=== PATIENT | female | born 1980 | race Caucasian/White ===

== ENCOUNTER 2016-08-05 16:29 | Outpatient (CLI) | payer MEDICAID ==
[~2016-08-05] VITALS: Ht 154.9 cm; Wt 82.4 kg
[~2016-08-05 16:29] MED LIST: ACET-2047 PO; NO CURRENT MEDS; PREN1TAB49 PO
[2016-08-05 16:39] VITALS: Ht 154.9 cm; Wt 82.4 kg
[2016-08-05 16:40] VITALS: BP 113/62
--- NOTE | 2016-08-05 17:34 | RADRPT ---
PROCEDURE: US OB biophysical profile. CLINICAL INDICATION: evaluation TECHNIQUE: Multiple sonographic images of the pelvis were obtained. The images were reviewed on a PACS workstation. COMPARISON: No prior studies are available for comparison. FINDINGS: There is a single viable intrauterine gestation. Cardiac activity is present with 136 beats per min fazal. There is a vertex presentation. The placenta is fundal. There is no evidence of placental abruption. There is a low - normal amount of amniotic fluid with an TERRIE = 8.9 cm. Biophysical profile: movement 2/2 tone 2/2. breathing 2/2 TERRIE 2/2 Total 03/03 RPTAT: AA . IMPRESSION: Normal biophysical profile. Low - normal TERRIE of 8.9 cm. Physician Dylan Date Time Electronically viewed and signed by Lucien Rea Physician on 08/05/2016 17:33 /
--- NOTE | 2016-08-08 18:00 | CONS ---
DATE OF ADMISSION: 08/05/2016 DATE OF CONSULTATION: HOSPITAL TRIAGE NOTE HISTORY OF PRESENT ILLNESS: This lady is a 36-year-old 6, para 3, 2 who came to [facility] triage area complaining of low movement all day that day. No complaining of contractions or vaginal discharge or bleeding. Her previous deliveries were vaginal without any complications. On the monitor, she was having just occasional contractions. PHYSICAL EXAMINATION: GENERAL: She is a well-developed, well-nourished lady. EARS, NOSE, AND THROAT: Appear to be normal. NECK: Normal. Thyroid is normal. LUNGS: Clear to auscultation and percussion. BREASTS: Soft, free of masses. ABDOMEN: Soft. The uterus is measured around 28 cm. It appears that the baby is in vertex present ation. No CVA tenderness. EXTREMITIES: Negative for edema or varicosity. On the monitor, her contractions were very infrequent. The ultrasound study was performed. Her NST was reactive with good variability and acceleration. No decels. Biophysical profile was reported 8/8. Her TERRIE was 8.9 cm. Due to lack of contractions, she was instructed to go home and rest and g o back to see her primary care physician in 2 days. She was asked to do a kick count. If notice an y low count/ movement, return to the hospital again. Dictated By: KRIS INIGUEZ/NTS Conf#: [id number] DID#: [id number]
== END 2016-08-05 18:18 | disposition home or self-care (01) ==
LOC: L-D 16:29 → OBT 16:29
PROVIDERS: ATTEND Obstetrics & Gynecology
DX: O36.8130 Decreased fetal movements, third trimester, not applicable or unspecified (principal); O09.523 Supervision of elderly multigravida, third trimester; Z3A.00 Weeks of gestation of pregnancy not specified
CPT/HCPCS: 76818; Z7500; G0463

== ENCOUNTER 2016-08-09 17:26 | Inpatient (IN) | payer MEDICAID ==
[~2016-08-09] VITALS: Ht 154.9 cm; Wt 82.7 kg
[~2016-08-09 17:26] MED LIST changes: -ACET-2047 PO
[2016-08-14 17:50] VITALS: Ht 154.9 cm; Wt 82.7 kg
[2016-08-14 17:51] VITALS: BP 126/71; RESP 15
[2016-08-14] MEDS ORDERED: OXYTOCIN 30 UNITS/LR 500 ML IV SCH ×3 (18:00→19:00)
[2016-08-14] MEDS ORDERED: MISOPROSTOL 200 MCG TAB PR PRN (18:00)
[2016-08-14] MEDS ORDERED: IBUPROFEN 600 MG TAB PO PRN (18:00)
[2016-08-14] MEDS ORDERED: CARBOPROST 250 MCG INJ IM PRN (18:00)
[2016-08-14] MEDS ORDERED: OXYTOCIN 30 UNITS/LR 500 ML IV PRN (18:00)
[2016-08-14] MEDS ORDERED: METHYLERGONOVINE 0.2 MG INJ IM PRN (18:00)
[2016-08-14] MEDS ORDERED: LIDOCAINE 1% (MPF) 30 ML INJ INJ PRN (18:00)
[2016-08-14] MEDS ORDERED: BUTORPHANOL 2 MG INJ IV PRN (18:00)
[2016-08-14] MEDS: LACTATED RINGER'S 1,000 ML IV SCH (18:18)
[2016-08-14 18:45] LABS: BASOPHILS % 0.3 % (0.0-2.0); EOSINOPHILS # 0.1 10^3/ul (0.0-0.5); EOSINOPHILS % 0.7 % (0.0-7.0); HEMOGLOBIN 12.6 g/dl (12.0-16.0); LYMPHOCYTES # 2.3 10^3/ul (0.8-2.9); LYMPHOCYTES % 21.4 % (15.0-51.0); MEAN CORPUSCULAR HGB CONC 33.9 g/dl (32.0-37.0); MEAN CORPUSCULAR VOLUME 88.3 fl (82.0-101.0); MEAN PLATELET VOLUME 7.4 fl (7.4-10.4); MONOCYTE # 0.5 10^3/ul (0.3-0.9); MONOCYTES % 4.6 % (0.0-11.0); NEUTROPHIL # 7.7 10^3/ul (1.6-7.5); PLATELET COUNT 300 10^3/UL (140-440); RED BLOOD COUNT 4.19 10^6/ul (4.20-5.40); RED CELL DISTRIBUTION WIDTH 14.3 % (11.5-14.5); UNCORRECTED WBC 10.6 10^3/ul (4.8-10.8); WHITE BLOOD COUNT 10.6 10^3/ul (4.8-10.8)
[2016-08-14 18:53] LABS: PT RATIO 0.9
[2016-08-14 19:02] LABS: CONDITION 1
[2016-08-14 19:23] LABS: INR 0.87; PROTIME 11.9 Sec (12.2-14.2)
[2016-08-14 19:24] LABS: PARTIAL THROMBOPLASTIN TIME 26.9 Sec (25.0-35.0)
[2016-08-15] MEDS ORDERED: OXYTOCIN 30 UNITS/LR 500 ML IV SCH
[2016-08-15] MEDS: LACTATED RINGER'S 1,000 ML IV SCH ×2 (01:22→10:00)
[2016-08-15] MEDS ORDERED: FENTAnyl 50 MCG/ML VIAL ONE (11:13)
[2016-08-15] MEDS ORDERED: FENTAnyl 2MCG/ML-ROPIV 0.2% 100 ML ONE (11:13)
[2016-08-15] MEDS ORDERED: NALOXONE (0.4 MG/ML) INJ IV PRN (12:30)
[2016-08-15] MEDS ORDERED: FENTAnyl 2MCG/ML-ROPIV 0.2% 100 ML BAG EPI SCH (12:30)
--- NOTE | 2016-08-15 13:51 | DELSUM ---
Delivery Summary A-C Datetime Report Generated by CPN: 08/15/2016 13:50 DELIVERY PERSONNEL Furnace Filler: Travis, Karley MATERNAL INFORMATION Delivery Anesthesia: Epidural Medications in Delivery: oxytocin 30mu in in 599ml of LR Estimated Blood Loss (ml): 200 Placenta Cultured: No Maternal Complications: None LABOR SUMMARY EDC: 08/12/2016 00:00 No. Babies in Womb: 1 Attempted: No Labor Anesthesia: None LABOR INFORMATION Reason for Induction: Postterm Onset of Labor: 08/15/2016 08:44 Complete Dilatation: 08/15/2016 11:41 Oxytocin: Induction Group B Beta Strep: Negative Group B Beta Strep: Negative Steroids Given: None Reason Steroids Not Administered: Not Applicable MEMBRANES Membranes Rupture Method: Artificial Rupture of Membranes: 08/15/2016 08:44 Length of Rupture (hr): 3.33 Amniotic Fluid Color: Bloody Amniotic Fluid Amount: Scant Amniotic Fluid Odor: Normal STAGES OF LABOR Stage 1 hr: 2 Stage 1 min: 57 Stage 2 hr: 0 Stage 2 min: 23 Stage 3 hr: 0 Stage 3 min: 5 Total Time in Labor hr: 3 Total Time in Labor min: 25 VAGINAL DELIVERY Episiotomy: None Laceration Extension: First Degree Laceration Type: Perineal Laceration Repair: Yes Initial Vag Sponge Count: 20 Final Vag Sponge Count: 20 Initial Vag Sharps Count: 1 Final Vag Sharps Count: 2 Sponge Count Correct: Yes; Vaginal Sweep Performed Sharps Count Correct: Yes BABY A INFORMATION Delivery Date/Time: 08/15/2016 12:04 Method of Delivery: Vaginal Method of Delivery: Vaginal Born in Route : No : N/A Forceps: N/A Vacuum Extraction: N/A Shoulder Dystocia : N/A SHOULDER DYSTOCIA BABY A Infant Delivery Date/Time: 08/15/2016 12:04 PRESENTATION/POSITION BABY A Presentation: Cephalic Cephalic Presentation: Vertex Vertex Position: Left Occipital Anterior Breech Presentation: N/A PLACENTA INFORMATION BABY A Placenta Delivery Time : 08/15/2016 12:09 Placenta Method of Delivery: Spontaneous Placenta Method of Delivery: Spontaneous Placenta Status: Delivered SCORES BABY A Heart Rate 1 min: >100 bpm Resp Effort 1 min: Good Cry Reflex Irritability 1 min: Cough/Sneeze/Pulls Away Muscle Tone 1 min: Active Motion Color 1 min: Body Merriam, Extremit Blue Resuscitation Effort 1 min: Tactile Stimulation SCORE 1 MIN: 9 Heart Rate 5 min: >100 bpm Resp Effort 5 min: Good Cry Reflex Irritability 5 min: Cough/Sneeze/Pulls Away Muscle Tone 5 min: Active Motion Color 5 min: Body Merriam, Extremit Blue Resuscitation Effort 5 min: Tactile Stimulation SCORE 5 MIN: 9 INFORMATION BABY A Gestational Age at Delivery: 40.4 Gestational Status: Full Term- 39- 40.6 Weeks Infant Outcome : Liveborn Condition : Stable Infant Sex: Female Infant Sex: Female IDENTIFICATION/MEDS BABY A ID Band Number: [id number] ID Band Location: Right Leg; Left Arm Sensor Applied: Yes Sensor Number: [id number] Sensor Location : Cord Clamp Vitamin K Given : Aquamephyton 1 mg IM; Left Thigh Erythromycin Given: Given Both Eyes WEIGHT/LENGTH BABY A Infant Birthweight (gm): 3450 Infant Weight (lb): 7 Weight (oz): 10 Infant Length (in): 21.00 Length (cm): 53.34 CORD INFORMATION BABY A No. Cord Vessels: 3 Nuchal Cord : N/A Cord Blood Taken: Yes Infant Suction: Mouth; Nose ASSESSMENT BABY A Complications: None Physical Findings at Delivery: Within Normal Limits Infant Respirations: Appears Normal Student Development Coordinator/ALS Called : No Infant Care By: Davida Transferred To: Remains with Mother
[2016-08-15] MEDS ORDERED: BENZOCAINE 20% 56 ML SPRAY TOP PRN (14:00)
[2016-08-15] MEDS ORDERED: ACETAMINOPHEN 325 MG TAB PO PRN (14:00)
[2016-08-15] MEDS ORDERED: LANOLIN 7 GM TUBE TOP PRN (14:00)
[2016-08-15] MEDS ORDERED: OXYCODONE/ASPIRIN (4.88/325) TAB PO PRN ×2 (14:00)
[2016-08-15] MEDS ORDERED: WITCH HAZEL/GLYCERIN PAD PR PRN (14:00)
[2016-08-15] MEDS ORDERED: DIBUCAINE 1% 30 GM OINT PR PRN (14:00)
[2016-08-15] MEDS ORDERED: ONDANSETRON 4 MG INJ IV PRN (14:00)
[2016-08-15] MEDS ORDERED: ACETAMINOPHEN/CODEINE #3 TAB PO PRN ×2 (14:00)
--- NOTE | 2016-08-15 14:11 | HP ---
Date/Time of Note Date/Time of Note DATE: 08/15/16 TIME: 13:53 OB - History Hx of Present Free Text/Dictation 36 years old female admitted to [facility] at 40 weeks and 3 days of in early labor ,admission pelvic examination: Cervical dilatation 2 cm 80% effaced, vertex at -2 station with intact membranes , mild contraction every 6-7 minutes, with category 1 heart tracing'. This patient has been under the care of [facility] and her was not complicated with gestational diabetes -induced hypertension or any other medical or surgical conditions Medication allergies; denies allergy to any known medication Social habit ;denies any smoking or drinking Family history unremarkable Review of system within normal Estimated Due Date: Aug 12, 2016 : 6 Para: 3 Spontaneous : 0 Therapeutic : 2 Care: Limited Care Ultrasounds: Normal mid trimester US Obstetrical Complications: None Medical Complications: None Past Family/Social History * Past Medical, Surgical, Family and Obstetric Histories reviewed from chart. Rubella: immune RPR/VDRL: Negative GBS Status: Negative HBsAG: Negative OB Admission Exam Vital Signs Vital Signs Vital Signs Date Time Temp Pulse Resp B/P Pulse Ox O2 Delivery O2 Flow Rate FiO2 08/14/16 17:51 98.4 15 126/71 Physical Exam HEENT: WNL Heart: Rhythm Normal Abdomen: WNL Extremities: Normal Reflexes: Normal Cervical Dilatation: 2cm Effacement: Other (80%) Station: -1 Membranes: Intact Accelerations: Accelerations Present Decelerations: No Decelerations Varibility: Minimum Contractions on Admission: 6-10 Minutes Apart Intensity: Mild Last 72 hours Lab Results CBC & BMP 08/14/16 18:15 MAY NICE MD Aug 15, 2016 14:03
--- NOTE | 2016-08-15 14:17 | LDN ---
Date/Time of Note Date/Time of Note DATE: 08/15/16 TIME: 14:11 Delivery Summary Normal spontaneous vaginal delivery of a baby girl from NICOLAS position shoulders delivered with no difficulty followed with the rest of the baby's body nasal oropharyngeal suction was performed cord was clamped after stopped pulsing baby handed to the team for immediate attention patient received 30 units of Pitocin through the IV infusion. Placenta; spontaneous exposure inspected complete sent to the pathology Small first-degree perineal laceration repaired with 3-0 chromic catgut estimated blood loss 250 cc Placenta Delivered: Spontaneously Meconium: none Perineum intact?: No Anesthesia type: Epidural Sponge & Needle done & correct: Yes All needle counts correct: Yes Any foreign bodies felt in the: No Problems: Infant Delivery Information Sex Infant Sex: female Apgars 1 Minute: 9 5 Minute: 9 Suctioning Nose & mouth suctioned at rodney: Yes Delee suction performed: No Umbilical Cord Umbilical cord with: 3 Vessels Cord presentations: nuchal cord Cord Blood was obtained: Yes MAY NICE MD Aug 15, 2016 14:17
[2016-08-15 14:49] VITALS: BP 110/55; PULSE 86; RESP 20
[2016-08-15] MEDS: OXYTOCIN 30 UNITS/LR 500 ML IV SCH ×2 (16:15→19:20)
[2016-08-15 16:24] VITALS: BP 115/63; PULSE 89; RESP 20
[2016-08-15] MEDS: IBUPROFEN 600 MG TAB PO SCH ×2 (18:47→23:50)
[2016-08-15 19:20] VITALS: BP 108/68; PULSE 69; RESP 20
[2016-08-15] MEDS: SENNA/DOCUSATE NA (8.6MG/50MG) TAB PO SCH (21:21)
[2016-08-16 04:10] VITALS: BP 101/63; PULSE 74; RESP 19
[2016-08-16] MEDS: IBUPROFEN 600 MG TAB PO SCH ×4 (05:51→23:22)
[2016-08-16 07:16] LABS: BASOPHILS % 0.3 % (0.0-2.0); EOSINOPHILS # 0.1 10^3/ul (0.0-0.5); EOSINOPHILS % 0.5 % (0.0-7.0); HEMATOCRIT 33.1 % (37.0-47.0); HEMOGLOBIN 11.2 g/dl (12.0-16.0); LYMPHOCYTES # 3.2 10^3/ul (0.8-2.9); MEAN CORPUSCULAR VOLUME 88.5 fl (82.0-101.0); MEAN PLATELET VOLUME 7.6 fl (7.4-10.4); MONOCYTE # 0.6 10^3/ul (0.3-0.9); MONOCYTES % 4.1 % (0.0-11.0); NEUTROPHIL # 10.8 10^3/ul (1.6-7.5); NEUTROPHILS % 73.1 % (39.0-77.0); PLATELET COUNT 251 10^3/UL (140-440); RED BLOOD COUNT 3.74 10^6/ul (4.20-5.40); RED CELL DISTRIBUTION WIDTH 15.1 % (11.5-14.5); UNCORRECTED WBC 14.7 10^3/ul (4.8-10.8); WHITE BLOOD COUNT 14.7 10^3/ul (4.8-10.8)
[2016-08-16 07:39] LABS: CONDITION 1; LH ANALYZER COMMENTS 1
[2016-08-16 08:55] VITALS: BP 101/68; PULSE 64; RESP 18
[2016-08-16] MEDS: SENNA/DOCUSATE NA (8.6MG/50MG) TAB PO SCH ×2 (09:24→21:03)
--- NOTE | 2016-08-16 13:29 | PN ---
Date/Time of Note Date/Time of Note DATE: 08/16/16 TIME: 13:28 OB Subjective Subjective Subjective day 1 Afebrile vital sign stable, abdomen soft uterus firm lochia normal extremity normal. Laboratory Tests Test 08/16/16 06:20 Basophils # 0.010^3/ul Basophils % 0.3% Blood Morphology Comment Eosinophils # 0.110^3/ul Eosinophils % 0.5% Hematocrit 33.1% Hemoglobin 11.2g/dl Lymphocytes # 3.210^3/ul Lymphocytes % 22.0% Mean Corpuscular Hemoglobin 30.0pg Mean Corpuscular Hemoglobin Concent 34.0g/dl Mean Corpuscular Volume 88.5fl Mean Platelet Volume 7.6fl Monocytes # 0.610^3/ul Monocytes % 4.1% Neutrophils # 10.810^3/ul Neutrophils % 73.1% Nucleated Red Blood Cells # 0.010^3/ul Nucleated Red Blood Cells % 0.0/100WBC Platelet Count 53626^3/UL Red Blood Count 3.7410^6/ul Red Cell Distribution Width 15.1% White Blood Count 14.710^3/ul Current Medications Medications (Trade) Dose Ordered Sig/Cydney Route PRN Reason Start Time Stop Time Status Last Admin Dose Admin Lactated Ringer's (Lr) 1,000 ml @ 125 mls/hr Q8H IV 08/14/16 17:54 08/15/16 14:01 DC 08/15/16 10:00 Butorphanol Tartrate (Stadol) 2 mg Q2H PRN IV PAIN 08/14/16 18:00 08/15/16 14:01 DC Lidocaine 30 ml 30 ml ONCE PRN INJ EPISIOTOMY/TEARING 08/14/16 18:00 08/15/16 14:01 DC Oxytocin/Lactated Ringer's 500 ml @ 125 mls/hr ONCE -MAY REPEAT X1 IV 08/14/16 18:00 08/15/16 14:01 DC Oxytocin/Lactated Ringer's 500 ml @ 125 mls/hr ONCE IV 08/14/16 18:00 08/15/16 14:01 DC 08/15/16 12:24 Ibuprofen 600 mg 600 mg ONCE PRN PO Mild Pain (Pain Score 1-3) 08/14/16 18:00 08/15/16 14:01 DC Oxytocin/Lactated Ringer's 500 ml @ 0 mls/hr ONCE PRN IV For Hemorrhage Management 08/14/16 18:00 08/15/16 14:01 DC Methylergonovine Maleate (Methergine) 0.2 mg ONCE PRN IM VAGINAL BLEEDING 08/14/16 18:00 08/15/16 14:01 DC Carboprost Tromethamine (Hemabate) 250 mcg ONCE PRN IM VAGINAL BLEEDING 08/14/16 18:00 08/15/16 14:01 DC Misoprostol 1000 mcg 1,000 mcg ONCE PRN SD VAGINAL BLEEDING 08/14/16 18:00 08/15/16 14:01 DC Oxytocin/Lactated Ringer's 500 ml @ 0 mls/hr Q0M IV 08/14/16 19:00 08/14/16 19:00 DC Oxytocin/Lactated Ringer's 500 ml @ 0 mls/hr Q0M IV 08/15/16 00:00 08/15/16 14:01 DC 08/15/16 00:05 Fentanyl/ Ropivacaine 100 ml @ ud STK-MED ONCE .ROUTE 08/15/16 11:13 08/15/16 11:14 DC Fentanyl (Sublimaze) 100 mcg STK-MED ONCE .ROUTE 08/15/16 11:13 08/15/16 11:14 DC Naloxone HCl (Narcan) 0.1 mg Q2M PRN IV FOR RESP RATE 8 OR LESS 08/15/16 12:30 08/15/16 14:01 DC Fentanyl/ Ropivacaine 100 ml 100 ml EPIDURAL INFUSION EPI 08/15/16 12:30 08/15/16 14:01 DC Oxytocin/Lactated Ringer's 500 ml @ 125 mls/hr Q4H IV 08/15/16 13:58 08/15/16 21:57 DC 08/15/16 16:15 Ibuprofen (Motrin) 600 mg Q6 PO 08/15/16 18:00 08/16/16 11:57 Acetaminophen (Tylenol Tab) 650 mg Q4H PRN PO PAIN LEVEL 1-5 08/15/16 14:00 08/15/16 15:21 Acetaminophen/ Codeine Phosphate (Tylenol No.3) 1 tab Q4H PRN PO PAIN LEVEL 1-5 08/15/16 14:00 Acetaminophen/ Codeine Phosphate (Tylenol No.3) 2 tab Q4H PRN PO PAIN LEVEL 6-10 08/15/16 14:00 Oxycodone/Aspirin (Percodan) 1 tab Q3H PRN PO PAIN LEVEL 1-5 08/15/16 14:00 Oxycodone/Aspirin (Percodan) 2 tab Q3H PRN PO PAIN LEVEL 6-10 08/15/16 14:00 Ondansetron HCl (Zofran Inj) 4 mg Q6H PRN IV NAUSEA AND/OR VOMITING 08/15/16 14:00 Senna/Docusate Sodium (Senokot-S) 1 tab BID PO 08/15/16 21:00 08/16/16 09:24 Witch Niharika/ Glycerin (Tucks Pads) 1 pad BEDSIDE MEDICATION PRN SD HEMORRHOID/EPISIOTMY PAIN 08/15/16 14:00 Benzocaine (Dermoplast [place]) 1 spray BEDSIDE MEDICATION PRN TOP HEMORRHOID/EPISIOTMY PAIN 08/15/16 14:00 08/15/16 15:21 Dibucaine (Nupercainal) 1 applic BEDSIDE MEDICATION PRN SD HEMORRHOID/EPISIOTMY PAIN 08/15/16 14:00 Lanolin (Kjq-S-Owyqwm) 1 applic BEDSIDE MEDICATION PRN TOP BEDSIDE FOR SANDY TO NIPPLES 08/15/16 14:00 08/15/16 23:50 Measles/Mumps/ Rubella Vaccine Live (Mmr Ii Vaccine) 0.5 ml ONCE ONCE SC* 08/17/16 09:00 08/17/16 09:01 Influenza Virus Vaccine (Fluzone) 0.5 ml ONCE ONCE IM* 08/16/16 18:00 08/16/16 18:01 MAY NICE MD Aug 16, 2016 13:29
[2016-08-16 16:45] VITALS: BP 102/65; PULSE 61; RESP 18
[2016-08-16] MEDS ORDERED: INFLUENZA VIRUS VACCINE 0.5 ML SYG IM* ONE (18:00)
[2016-08-16 19:30] VITALS: BP 106/57; PULSE 73; RESP 19
[2016-08-17 03:40] VITALS: BP 102/58; PULSE 61; RESP 19
[2016-08-17] MEDS: IBUPROFEN 600 MG TAB PO SCH ×2 (05:53→12:17)
[2016-08-17 08:50] VITALS: BP 111/66; PULSE 65; RESP 18
[2016-08-17] MEDS: SENNA/DOCUSATE NA (8.6MG/50MG) TAB PO SCH (09:00)
[2016-08-17] MEDS ORDERED: MEASLES,MUMPS,RUBELLA VACCINE INJ SC* ONE (09:00)
--- NOTE | 2016-08-17 13:25 | PD.PPDC ---
ROAD ROLLER OPERATOR Discharge Instruction Condition Patient Condition: Good Diet Diet: Resume Regular Diet Activity/Restrictions Activity: Normal Activity May Shower Restrictions: No Exercising No Lifting No Driving No Sexual Activity Nothing in the Vagina No [place] No Tampons, douche Wound/Drain Care Instructions Wound/Drain Care Instructions: Wash with soap and water Keep clean and dry Follow-up Follow-up with Physician: 2, Week/Weeks Return to clinic for CENTRIFUGAL SPINNER Instructions: Fever greater than 101 Worsening abdominal pain More than 2 pads per hour MAY NICE MD Aug 17, 2016 13:25
--- NOTE | 2016-08-17 13:28 | DS ---
Date/Time of Note Date/Time of Note DATE: 08/17/16 TIME: 13:26 Obstetrical Discharge Record Final Diagnosis Final Diagnosis: Term delivered Vaginal Delivery Obstetrical Delivery: Spontaneous Condition on Discharge Physical Assessment Last Vitals: Vital sign stable, abdomen soft uterus firm lochia normal extremity normal patient discharged home with follow-up instructions recommended to make appointment in 2 weeks to be seen at the clinic for check Breast: Soft, non-tender, Filling Fundus: Firm Calf Tenderness: No Patient Condition: Good MAY NICE MD Aug 17, 2016 13:28
== END 2016-08-17 18:16 | disposition home or self-care (01) | DRG 775 ==
LOC: EDSTATUS 17:26 → L-D 08-14 17:27 → PP1 08-15 14:05
PROVIDERS: ADMIT Obstetrics & Gynecology; ATTEND Obstetrics & Gynecology
PROC: 10E0XZZ Delivery of Products of Conception, External Approach (ICD-10-PCS; principal; 2016-08-15)
PROC: 0HQ9XZZ Repair Perineum Skin, External Approach (ICD-10-PCS; 2016-08-15)
PROC: 3E00X4Z Introduction of Serum, Toxoid and Vaccine into Skin and Mucous Membranes, External Approach (ICD-10-PCS; 2016-08-16)
DX: O69.81X0 Labor and delivery complicated by cord around neck, without compression, not applicable or unspecified (principal); O70.0 First degree perineal laceration during delivery; Z23 Encounter for immunization; Z3A.40 40 weeks gestation of pregnancy; Z37.0 Single live birth
CPT/HCPCS: 62319; 85025; 85610; 85730; 86592; 86900; 86901; 90686; J2590; J3010; J7120